=== PATIENT | female | born 1970 | race Caucasian/White ===

== ENCOUNTER 2018-06-23 00:41 | Emergency (ER) | payer BC, OTHER ==
[~2018-06-23] VITALS: Ht 162.6 cm; Wt 89.4 kg
[2018-06-23 00:56] VITALS: BP 131/73
[2018-06-23] MEDS ORDERED: DEXAMETHASONE SOD PHOSPHATE 4 MG/ML VIAL IM ONE (01:00)
[2018-06-23] MEDS ORDERED: HYDROMORPHONE 1 MG/1 ML DISP.SYRIN IM ONE (01:00)
[2018-06-23] MEDS ORDERED: CARISOPRODOL 350 MG TABLET PO ONE (01:00)
[2018-06-23] MEDS ORDERED: DEXAMETHASONE SOD PHOSPHATE 10 MG/ML VIAL ONE (01:18)
[2018-06-23] MEDS ORDERED: CARISOPRODOL 350 MG TABLET ONE (01:18)
[2018-06-23] MEDS ORDERED: HYDROMORPHONE INJ 2 MG/ML DISP.SYRIN ONE (01:19)
--- NOTE | 2018-06-23 07:15 | NUR ---
Patient discharged to home in stable condition. Written and verbal after care instructions given. Patient verbalizes understanding of instruction. NO S/S OF DISTRESS UPON DISCHARGE. PT INSTRUCTED NOT TO DRIVE.
== END 2018-06-23 07:16 | disposition home or self-care (01) ==
LOC: ER 00:43
DX: M54.31 Sciatica, right side (principal); Z98.890 Other specified postprocedural states; Z90.89 Acquired absence of other organs; Z88.0 Allergy status to penicillin
CPT/HCPCS: 96372 ×2; 99284; A4606; J1100; J1170; Z7610

== ENCOUNTER 2019-03-29 06:21 | Inpatient (IN) | payer BC ==
[~2019-03-29] VITALS: Ht 162.6 cm; Wt 89.4 kg
[2019-03-29] MEDS ORDERED: KETOROLAC TROMETHAMINE 15 MG/ML VIAL ONE (06:43)
[2019-03-29] MEDS ORDERED: ONDANSETRON HCL/PF 4 MG/2 ML VIAL ONE (06:43)
[2019-03-29] MEDS ORDERED: MORPHINE SULFATE INJ 4 MG/ML DISP.SYRIN ONE (06:44)
[2019-03-29 06:54] LABS: BASOPHILS % (AUTO) 0.5 % (0.0-2.0); EOSINOPHILS % (AUTO) 1.3 % (0.0-6.0); HEMATOCRIT 33 % (33-45); HEMOGLOBIN 9.9 g/dL (11.5-14.8); LYMPHOCYTES # (AUTO) 2.4 /CMM (0.8-4.8); MEAN CORPUSCULAR HGB CONC 30 g/dl (31.0-36.0); MEAN CORPUSCULAR VOLUME 68 fL (82-100); MONOCYTES # (AUTO) 0.8 /CMM (0.1-1.30); MONOCYTES % (AUTO) 8.4 % (2.0-12.0); NEUTROPHILS # (AUTO) 5.8 /CMM (1.8-8.9); NEUTROPHILS % (AUTO) 63.8 % (43.0-81.0); PLATELET COUNT (AUTO) 576 /CMM (150-450); RED BLOOD CELL COUNT(AUTO) 4.86 MIL/uL (4.0-5.2); WHITE BLOOD COUNT (AUTO) 9.1 K/uL (4.3-11.0)
[2019-03-29] MEDS ORDERED: IV NS 0.9% 1,000 ML BAG IV ONE (07:00)
[2019-03-29] MEDS ORDERED: MORPHINE SULFATE INJ 2 MG/ML DISP.SYRIN IV ONE (07:00)
[2019-03-29] MEDS ORDERED: ONDANSETRON HCL/PF 4 MG/2 ML VIAL IVP ONE (07:00)
[2019-03-29] MEDS ORDERED: KETOROLAC TROMETHAMINE INJ 30 MG/ML VIAL IV ONE (07:00)
[2019-03-29 07:01] LABS: CALCIUM, SERUM 8.4 mg/dL (8.5-10.1); CREATININE 0.7 mg/dL (0.6-1.3); POTASSIUM 3.7 mmol/L (3.5-5.1)
--- NOTE | 2019-03-29 07:01 | NUR ---
PRESENTED TO THE ER W/ C/O ABD PAIN, N/V. PLACED ON A MONITOR, IV 20G STARTED ON LAC . MEDICATED ORDERED .WILL CONT TO MONITOR ,
[2019-03-29 07:12] LABS: ALBUMIN 3.7 g/dL (3.4-5.0); BILIRUBIN,TOTAL 0.2 mg/dL (0.2-1.0); TOTAL PROTEIN, SERUM 7.7 g/dL (6.4-8.2)
[2019-03-29] MEDS ORDERED: LORAZEPAM INJ 2 MG/ML VIAL IV ONE (07:30)
[2019-03-29] MEDS ORDERED: LORAZEPAM INJ 2 MG/ML VIAL ONE (07:36)
[2019-03-29 07:50] LABS: APPEARANCE,URINE Clear (CLEAR); BILIRUBIN,URINE Negative (NEGATIVE); BLOOD, URINE Negative Ery/uL (NEGATIVE); COLOR,URINE Yellow (YELLOW); KETONES,URINE Negative (NEGATIVE); LEUKOCYTE ESTERASE ,URINE Trace (NEGATIVE); NITRITE, URINE Negative (NEGATIVE); PH,URINE 6.5 (5.0-8.0); PROTEIN,URINE Negative (NEGATIVE); UGLUCOSE Negative (NEGATIVE); UROBILINOGEN,URINE 0.2 EU/dL (0.2)
[2019-03-29 07:53] LABS: BACTERIA,URINE Moderate /HPF (None Seen); RBC,URINE 0-2 /HPF (0-2); SQUAMOUS EPITHELIAL CELL,UR Few /HPF (None Seen)
[2019-03-29] MEDS ORDERED: HYDROMORPHONE INJ 0.5 MG/0.5 ML SYRINGE IV ONE (08:30)
[2019-03-29] MEDS ORDERED: HYDROMORPHONE 1 MG/1 ML DISP.SYRIN ONE (08:34)
--- NOTE | 2019-03-29 08:53 | NUR ---
PATIENT STATED "PAIN IS BETTER, BUT STILL THERE." RX PROVIDED AND EXPLAINED, Written and verbal after care instructions given. Patient verbalizes understanding of instruction. Patient waiting for a family member to pick her up. Patient left in bed, comfortable. Call light within reach.
--- NOTE | 2019-03-29 10:20 | NUR ---
PATIENT STILL SLEEPING, NO DISTRESS NOTED. RESPONSIVE TO VERBAL STIMULI. WILL MONITOR.
[2019-03-29] MEDS ORDERED: ACETAMINOPHEN 325 MG TABLET PO ONE (11:30)
--- NOTE | 2019-03-29 11:30 | NUR ---
PATIENT STATED SHE'S WAITING FOR SISTER IN LAW TO PICK HER UP. ESTIMATED AT 1300.
[2019-03-29] MEDS ORDERED: ACETAMINOPHEN 325 MG TABLET ONE (11:31)
--- NOTE | 2019-03-29 16:00 | NUR ---
PATIENT STILL COMPLAINING OF ABDOMINAL PAIN, VERBALIZED "PAIN IS GETTING WORSE AGAIN." DR. STRONG MADE AWARE, AND JORDANA HERNANDEZ DNP.
[2019-03-29] MEDS ORDERED: IBUP-1957 PO (16:48)
[2019-03-29] MEDS ORDERED: FERR325T23 PO (16:48)
[2019-03-29] MEDS ORDERED: TEMAZEPAM 15 MG CAPSULE PO PRN (17:00)
[2019-03-29] MEDS ORDERED: ONDANSETRON HCL/PF 4 MG/2 ML VIAL IVP PRN (17:00)
[2019-03-29] MEDS ORDERED: MAGNESIUM HYDROXIDE 30 ML UDC PO PRN (17:00)
[2019-03-29] MEDS ORDERED: ACETAMINOPHEN 325 MG TABLET PO PRN (17:00)
[2019-03-29] MEDS ORDERED: MAG HYDROX/AL HYDROX/SIMETH 30 ML UDC PO PRN (17:00)
--- NOTE | 2019-03-29 17:20 | NUR ---
REPORT GIVEN TO ISABELLE PATEL.
--- NOTE | 2019-03-29 17:21 | NUR ---
PATIENT TRANSFERRED TO ROOM 317 MS.
--- NOTE | 2019-03-29 17:25 | NUR ---
MS RN NOTES PATIENT ADMITTED FROM ER REPORT GIVRN BY ALETA. ALERT ORIENTED X 3. NO ACUTE DISTRESS NOTED. BREATHING UNLABORED. IV ACCESS PATENT AND INTACT. SAFETY MEASURES IN PLACE. CALL LIGHT WITHIN REACH. WILL CONTINUE TO MONITOR ACCORDINGLY.
[2019-03-29] MEDS: FAMOTIDINE/PF INJ 20 MG/2 ML VIAL IV SCH (18:25)
[2019-03-29] MEDS: IV NS 0.9% 1,000 ML IV PRN (18:25)
[2019-03-29] MEDS: CEFTRIAXONE 1 G in IV D5W 50 ML IV SCH (18:26)
--- NOTE | 2019-03-29 19:00 | NUR ---
MS RN NOTES PATIENT IN BED , ALERT ORIENTED X 3. NO ACUTE DISTRESS NOTED. BREATHING UNLABORED. IV ACCESS PATENT AND INTACT. DUE MEDICATIONS GIVEN, NO ASE NOTED. NEEDS ATTENDED AND ANTICIPATED. SAFETY MEASURES IN PLACE. CALL LIGHT WITHIN REACH. ENDORSED TO NIGHT NURSE FOR CONTINUITY CARE.
--- NOTE | 2019-03-29 19:32 | NUR ---
MS RN RECEIVE PT AWAKE IN BED, A/O X3, STABLE, RESPIRATIONS EVEN AND UNLABORED, SAFETY MEASURES IN PLACE. WILL CONTINUE TO MONITOR.
[2019-03-29 20:00] VITALS: BP 107/65
[2019-03-29] MEDS: HYDROMORPHONE INJ 2 MG/ML DISP.SYRIN IV PRN (20:55)
[2019-03-30] MEDS: IV NS 0.9% 1,000 ML IV PRN ×2 (03:03→15:27)
--- NOTE | 2019-03-30 06:19 | NUR ---
MS RN ASLEEP AND EASILY AWAKEN, TOLERATING ROOM AIR 99%. RESPIRATION EVEN AND UNLABORED, NEEDS ATTENDED AND ANTICIPATED, KEPT CLEAN AND DRY AND COMFORTABLE. NURSING CARE RENDERED, NO COMPLAIN OF PAIN. MAINTAINS NPO, SAFETY MEASURES AT ALL TIMES. ENDORSE TO THE NEXT SHIFT.
[2019-03-30 06:31] LABS: BASOPHILS % (AUTO) 0.6 % (0.0-2.0); EOSINOPHILS % (AUTO) 1.8 % (0.0-6.0); HEMATOCRIT 30 % (33-45); HEMOGLOBIN 9.1 g/dL (11.5-14.8); LYMPHOCYTES % (AUTO) 34.7 % (20.0-44.0); MEAN CORPUSCULAR HGB CONC 30 g/dl (31.0-36.0); MEAN CORPUSCULAR VOLUME 68 fL (82-100); MONOCYTES # (AUTO) 0.4 /CMM (0.1-1.30); MONOCYTES % (AUTO) 7.1 % (2.0-12.0); NEUTROPHILS # (AUTO) 3.2 /CMM (1.8-8.9); NEUTROPHILS % (AUTO) 55.8 % (43.0-81.0); PLATELET COUNT (AUTO) 486 /CMM (150-450); RED BLOOD CELL COUNT(AUTO) 4.45 MIL/uL (4.0-5.2); WHITE BLOOD COUNT (AUTO) 5.8 K/uL (4.3-11.0)
[2019-03-30 06:45] LABS: CALCIUM, SERUM 7.8 mg/dL (8.5-10.1); CREATININE 0.6 mg/dL (0.6-1.3); PHOSPHORUS 3.3 mg/dL (2.5-4.9); POTASSIUM 3.8 mmol/L (3.5-5.1)
--- NOTE | 2019-03-30 07:33 | NUR ---
RN MS OPENING NOTES Received patient on room air, no sob noted. Patient denies pain at this time. Patient a/o x4. Patient easily awakened. Patient's bed at the lowest setting, call light within reach.
[2019-03-30 08:00] VITALS: BP 93/52
[2019-03-30 08:06] LABS: EOSINOPHILS % (MANUAL) 3 % (0-4); LYMPHOCYTES % (MANUAL) 34 % (16-48); MONOCYTES % (MANUAL) 7 % (0-11.0); NEUTROPHILS % (MANUAL) 56 (42-76)
[2019-03-30] MEDS ORDERED: DIATR MEGLU/DIATRIZOATE SODIUM 30 ML BOTTLE (GASTROGRAPHIN) ONE (08:17)
[2019-03-30] MEDS: HYDROMORPHONE INJ 2 MG/ML DISP.SYRIN IV PRN ×2 (08:34→15:21)
[2019-03-30] MEDS: FAMOTIDINE/PF INJ 20 MG/2 ML VIAL IV SCH ×2 (08:37→16:22)
[2019-03-30] MEDS ORDERED: LOPE2CAP40 PO (11:23)
[2019-03-30] MEDS ORDERED: IOHEXOL-300 100 ML VIAL IV ONE (11:35)
[2019-03-30 16:00] VITALS: BP 106/72
[2019-03-30] MEDS: CEFTRIAXONE 1 G in IV D5W 50 ML IV SCH (17:16)
--- NOTE | 2019-03-30 19:00 | NUR ---
JORGE MS NOTES Patient discharged around 1730, gave the paperworks to the patient and signed it. Patient has all her belongings with her, ipad, iphone, clothes and valuables. Patient had a copy of her discharge papers and instructions. Patient wanted to eat at this time and stated that she wanted to sit for a while. Patient left after 1900.
== END 2019-03-30 19:00 | disposition home or self-care (01) | DRG 392 ==
LOC: ER 06:21 → MED 16:55
PROVIDERS: ADMIT Nurse Practitioner Acute Care
DX: A08.4 Viral intestinal infection, unspecified (principal); D50.9 Iron deficiency anemia, unspecified; E66.9 Obesity, unspecified; Z68.33 Body mass index [BMI] 33.0-33.9, adult; D25.9 Leiomyoma of uterus, unspecified; E27.8 Other specified disorders of adrenal gland; Z98.890 Other specified postprocedural states; B96.89 Other specified bacterial agents as the cause of diseases classified elsewhere; Z88.0 Allergy status to penicillin; D35.00 Benign neoplasm of unspecified adrenal gland; G89.29 Other chronic pain; Z90.49 Acquired absence of other specified parts of digestive tract; D47.3 Essential (hemorrhagic) thrombocythemia
CPT/HCPCS: 36415; 76705-TC; 80048-TC; 80061-TC; 80076-TC; 81000-TC; 83690-TC; 83735-TC; 84100-TC; 84703-TC; 85025-TC; 87081-TC; 87086-TC; G0378; J0696; J1170; J1885; J2060; J2270; J2405; J3490; J7030; J7060; Q9963; Q9967